=== PATIENT | male | born 1945 | race Caucasian/White ===

== ENCOUNTER → 2017-09-30 | Outpatient (CLI) | payer OTHER ==
[~2017-09-30] MED LIST: NAPROSYN500 MG PO; OXYCODONE-ACET1 EACH PO
== END | disposition home or self-care (01) ==
DX: M16.11 Unilateral primary osteoarthritis, right hip (principal); R26.2 Difficulty in walking, not elsewhere classified; M25.551 Pain in right hip; M25.651 Stiffness of right hip, not elsewhere classified; Z74.1 Need for assistance with personal care
CPT/HCPCS: 97161 GP; 97165 GO; 97530 GP; 97535 GO; G8978 GP; G8979 GP; G8980 GP; G8990 GO; G8991 GO; G8992 GO

== ENCOUNTER 2017-10-13 22:05 | Inpatient (IN) | payer OTHER ==
[~2017-10-13] VITALS: Ht 167.6 cm; Wt 75.6 kg
[~2017-10-13 22:05] MED LIST changes: -OXYCODONE-ACET1 EACH PO; +PERCOCET 7.51 TABLET PO
[2017-10-14] MEDS ORDERED: NEXIUM40 MG PO (11:05)
[2017-10-14] MEDS ORDERED: GABAPENTIN600 MG PO (11:06)
[2017-10-14] MEDS ORDERED: NABUMETONE500 MG PO (11:06)
[2017-10-14 11:07] VITALS: BP 112/61
[2017-10-14 16:38] LABS: HEMATOCRIT 32.9 % (38.0-50.0); HEMOGLOBIN 11.1 G/DL (12.5-16.6); MCH 31.9 PG (29.0-34.0); MCHC 33.7 G/DL (30.0-36.0); MCV 94.5 FL (86-99); PLATELET COUNT 195 K/uL (156-360); RBC DIS.WIDTH-CV 12.7 % (11.8-14.6); RBC DIS.WIDTH-SD 43.9 % (39-53); RED BLOOD COUNT 3.48 M/uL (4.00-5.50); WHITE BLOOD COUNT 7.9 K/uL (4.1-10.2)
[2017-10-14 17:36] VITALS: BP 144/71
[2017-10-14 19:51] VITALS: BP 141/73
[2017-10-15 00:06] VITALS: BP 146/77
[2017-10-15 04:05] VITALS: BP 139/80
[2017-10-15 04:40] LABS: HEMATOCRIT 32.8 % (38.0-50.0); HEMOGLOBIN 11.1 G/DL (12.5-16.6); MCV 94.5 FL (86-99)
[2017-10-15 04:55] LABS: CHLORIDE 103 MEQ/L (99-109); GFR ESTIMATE (CALCULATED) > 59 mL/min/ (58.99-99999); GLUCOSE 117 mg/dL (70-99); POTASSIUM 4.3 MEQ/L (3.7-5.4); SODIUM 135 MEQ/L (136-147); UREA NITROGEN (BUN) 19 mg/dL (9-23)
[2017-10-15 08:02] VITALS: BP 114/65
[2017-10-15 11:57] VITALS: BP 111/53
[2017-10-15 15:26] VITALS: BP 137/61
[2017-10-15 19:41] VITALS: BP 98/54
[2017-10-16 00:10] VITALS: BP 130/60
[2017-10-16 04:14] VITALS: BP 110/58
[2017-10-16 04:49] LABS: HEMATOCRIT 28.6 % (38.0-50.0); HEMOGLOBIN 9.7 G/DL (12.5-16.6)
[2017-10-16 08:08] VITALS: BP 116/53
[2017-10-16] MEDS ORDERED: ENDOCET 5-3251 EACH PO (08:48)
[2017-10-16] MEDS ORDERED: OXYCONTIN10 MG PO (08:48)
[2017-10-16] MEDS ORDERED: DOCUSATE SODIU100 MG PO (08:48)
[2017-10-16] MEDS ORDERED: LOVENOX40 MG/0.4 SC (08:48)
[2017-10-16 12:11] VITALS: BP 112/64
== END 2017-10-16 13:54 | disposition home health service (06) | DRG 470 ==
LOC: ENRESERV 22:05 → 2SOUTH 10-14 10:41 → 3WEST 10-14 17:21
PROVIDERS: Orthopaedic Surgery
PROC: 0SR902A Replacement of Right Hip Joint with Metal on Polyethylene Synthetic Substitute, Uncemented, Open Approach (ICD-10-PCS; principal; 2017-10-14)
DX: M16.11 Unilateral primary osteoarthritis, right hip (principal); D62 Acute posthemorrhagic anemia; H93.19 Tinnitus, unspecified ear; K21.9 Gastro-esophageal reflux disease without esophagitis; I49.9 Cardiac arrhythmia, unspecified; H54.7 Unspecified visual loss
CPT/HCPCS: 73501; 80048; 82948; 85014; 85018; 85027; J0690; J1170; J1650; J1885; J2250; J2405; J3010; J7050